=== PATIENT | male | born 1940 | race Caucasian/White ===

== ENCOUNTER 2017-09-08 05:55 | Day surgery (SDC) | payer OTHER, BC ==
[2017-09-03 15:54] VITALS: BMI 23.8
[2017-09-08] MEDS ORDERED: PROPOFOL 40 ML ONE (07:22)
[2017-09-08] MEDS ORDERED: SUCCINYLCHOLINE CHLORIDE 200 MG/10 ML VIAL ONE (07:22)
[2017-09-08] MEDS ORDERED: BACITRACIN 3.5 GM OPTHALMIC OINT TUBE ONE (07:24)
[2017-09-08] MEDS ORDERED: BUPIVACAINE HCL/PF 0.5% (5MG/ML) 10 ML VIAL ONE (07:24)
[2017-09-08] MEDS ORDERED: LIDOCAINE 1%/EPI 1:100000 (20 ML MULTI DOSE VIAL) ONE (07:24)
[2017-09-08] MEDS ORDERED: POVIDONE-IODINE 5% OPHTHALMIC PREP 30 ML SOLUTION ONE (07:43)
[2017-09-08] MEDS ORDERED: MIDAZOLAM HCL 2 MG/2 ML SINGLE DOSE VIAL ONE (08:05)
[2017-09-08] MEDS ORDERED: ceFAZolin SODIUM 1 GM VIAL ONE (08:07)
[2017-09-08] MEDS ORDERED: TETRACAINE 0.5% OPHTH SOLN 2 ML BOTTLE ONE (08:35)
[2017-09-08] MEDS ORDERED: TETRACAINE 0.5% OPHTH SOLN 2 ML BOTTLE OS ONE (08:39)
[2017-09-08] MEDS ORDERED: DEXAMETHASONE SOD PHOSPHATE 4 MG/1 ML VIAL ONE (08:46)
[2017-09-08] MEDS ORDERED: ONDANSETRON 4 MG/2 ML VIAL ONE (08:46)
[2017-09-08] MEDS ORDERED: BACITRACIN 3.5 GM OPTHALMIC OINT TUBE OS ONE (10:17)
[2017-09-08] MEDS ORDERED: ONDANSETRON 4 MG/2 ML VIAL IVPUSH PRN (10:27)
[2017-09-08] MEDS ORDERED: oxyCODONE HCL 5 MG TABLET PO PRN (10:27)
[2017-09-08] MEDS ORDERED: LACTATED RINGERS SOLUTION 1,000 ML IV SCH (10:30)
[2017-09-08 11:46] VITALS: PULSE 69
[2017-09-08 11:59] VITALS: BP 149/74; TEMP 97.8
--- NOTE | 2017-09-08 11:59 | OP ---
DATE OF OPERATION: 09/08/2017 PREOPERATIVE DIAGNOSIS: Extensive defect, left medial canthus, left lower lid, and left cheek, status post excision carcinoma. Also preexisting nasal ectropion. POSTOPERATIVE DIAGNOSIS: Extensive defect, left medial canthus, left lower lid, and left cheek, status post excision carcinoma. Also preexisting nasal ectropion. PROCEDURE: 1. Debridement and tailoring of defect. 2. Large extensive medial labial flap and reconstruction of the left lower lid, cheek, and medial canthus. SURGEON: Santos Ramírez MD PRISM INSPECTOR: None. ANESTHESIOLOGIST: Johana Pena MD ANESTHESIA: Local with minimal sedation. COMPLICATONS: None. ESTIMATED BLOOD LOSS: 10-20 mL. OPERATION REPORT: Patient was brought to the operating room, placed on the operating room table. Vital signs monitored by Anesthesia. Patient was given intravenous sedation. The medial labial flap was marked out after measuring defect in preparation for rotation and repair, and the patient was given intravenous sedation and a 50/50 mixture of 2% Xylocaine with 1:100,000 epinephrine, 2.5% Marcaine. was injected diffusely throughout the left cheek and medial canthus, nose, and left lower lid. The patient was then prepped and draped, exposing the supraclavicular , the ear, and both eyes. The wound was debrided and irrigated with antibiotics to regularize it, and then, the medial labial flap was marked along the root of the nose and along the nasal labial fold, and wide undermining with vertical spreading with a Brito scissors was carried out to elevate the cheek flap down to the lip and out alf across the cheek and across the eyelid, as well. Hemostasis was achieved with a Walker needle. Antibiotic irrigation was used throughout the case. The flap was then rotated. A back-cut was then necessary at the inferior edge of the medial labial incision in order to convert a V to a Y-plasty in order to allow for rotation of the flap upwards and covering the defect. Flap was secured to periosteum on the lateral side of the nose at the medial canthus using a double-arm 4-0 Prolene passed through a No. 8 Lao red rubber catheter, and the V arm of the V to Y-plasty was closed with deep 3-0 chromic sutures as was the rotator flap closed to periosteum along the nose and deep nasal tissue. Tissue was closed with 4-0 chromic, and then, the skin was closed with a combination of 5-0 plain suture interrupted along the eyelid and the medial canthus and 5-0 plain suture superiorly along the medial canthus, and then, 4-0 nylon inferiorly along the remainder of the flap closure. Standing cutaneous deformity was excised at the inferior end of the flap, and this was closed with 4-0 nylon, and a small standing cutaneous deformity was excised from the flap at the left lower eyelid in order to maintain as much skin as possible in that eyelid, and this was closed with interrupted 5-0 plain suture. Meticulous repair was carried out, and the lid was left well apposed to the globe with a residual nasal ectropion as had been existing preoperatively. The defect was well covered. A 2nd double-arm 4-0 Prolene suture was used at the junction of the Y and the V to close that tissue over two No. 8 Lao red rubber catheters. Bacitracin ointment was placed on all the sutures. The patient was taken to the recovery room in stable condition. SANTOS RAMÍREZ M.D. [id number]
== END 2017-09-08 12:01 | disposition home or self-care (01) ==
LOC: FASU 05:55
PROVIDERS: ATTEND Ophthalmology
PROC: 08URX7Z Supplement Left Lower Eyelid with Autologous Tissue Substitute, External Approach (ICD-10-PCS; 2017-09-08)
PROC: 08BR0ZZ Excision of Left Lower Eyelid, Open Approach (ICD-10-PCS; principal; 2017-09-08 08:39)
DX: C44.119 Basal cell carcinoma of skin of left eyelid, including canthus (principal); H02.89 Other specified disorders of eyelid
CPT/HCPCS: 94760